=== PATIENT | female | born 1980 | race Caucasian/White ===

== ENCOUNTER 2020-10-25 11:40 | Emergency (ER) | payer OTHER, SELFPAY ==
[2020-10-25 11:51] VITALS: BP 108/61; BP 98/63; PULSE 64; RESP 16; TEMP 35.8; O2SAT 97; O2SAT 98; BMI 27.6
--- NOTE | 2020-10-25 12:00 | ED.GENADULT ---
HPI - General Adult General Chief complaint: General Medical Stated complaint: WITHDRAWAL FROM HEROIN, LAST USE T-1 Time Seen by Provider: 10/25/20 11:58 Source: EMS Mode of arrival: EMS Limitations: no limitations History of Present Illness HPI narrative: 40-year-old female with a past medical history of substance abuse currently on methadone here after found asleep in her car. Per patient she was waiting in her car outside a shoe store for her shoes to be ready when she fell asleep. She denies current heroin use and is on methadone although missed her dose this morning.. Denies additional substance use. No physical complaints. She does tell me she received the J and J COVID vaccine 3 days ago and since then she has been feeling fatigued and tired and believes this is why she fell asleep. On arrival alert and oriented. Here with partner who was also in the car and found sleeping by PD. Related Data Allergies Allergy/AdvReac Type Severity Reaction Status Date / Time amoxicillin [Augmentin] Allergy Unknown hives Verified 10/04/16 00:00 clavulanic acid [Augmentin] Allergy Unknown hives Verified 10/04/16 00:00 Review of Systems Review of Systems: Yes all other systems are reviewed and are negative Constitutional: Constitutional: Reports no additional constitutional complaints, Denies body ache(s), Denies chills, Reports fatigue, Denies fever(s), Denies headache(s) and Denies weakness Eyes: Eyes: Reports no additional eye complaints and Denies change in vision ENT: Reports system reviewed and no additional complaints, except as documented, Denies dizziness, Denies headache(s), Denies nasal congestion, Denies nasal discharge and Denies neck pain Cardiovascular: Cardiovascular: Reports no additional cardiovascular complaints, Denies chest pain, Denies leg edema and Denies dyspnea Respiratory: Respiratory: Reports no additional respiratory complaints, Denies cough and Denies dyspnea Gastrointestinal: Gastrointestinal: Reports no additional gastrointestinal complaints, Denies abdominal pain, Denies diarrhea, Denies nausea and Denies vomiting Genitourinary: Genitourinary: Reports no additional female genitourinary complaints and Denies urinary incontinence Musculoskeletal: Musculoskeletal: Reports no additional musculoskeletal complaints, Denies back pain, Denies arthralgias, Denies joint swelling, Denies neck pain, Denies numbness and Denies tingling Integumentary/Breasts: Skin/Breast: Reports system reviewed and no additional complaints, except as docu and Denies rash Neurologic: Reports system reviewed and no additional complaints, except as documented, Denies Abnormal speech present, Denies dizziness, Denies headache(s), Denies numbness, Denies tingling and Denies weakness Endocrine: Endocrine: Reports fatigue PMFSH Past Medical History Attestation statement: The following information was validated with the patient. Source: old records reviewed and nursing notes reviewed Medical History Anxiety Depression Substance abuse Social History Social History Advance Directives: No Advance Directives Information Provided: Yes Patient : No Physical Exam Vital Signs: Vital Signs: Last Vital Signs Temp 96.5 F L 10/25/20 11:51 Pulse 64 10/25/20 11:51 Resp 16 10/25/20 11:51 BP 98/63 10/25/20 11:51 Pulse Ox 97 10/25/20 11:51 Body Mass Index 27.6 Const: General: cooperative, healthy appearing, comfortable and no acute distress Orientation/consciousness: patient oriented x3 Limitations: no limitations HENMT: Head: Yes normal to inspection Ears: hearing grossly normal bilaterally General nose exam: Normal external nose present Face and sinus: Yes normal facial exam Mouth: Normal oral and palatal mucosa present Throat: Yes posterior oropharynx normal Eyes: General: appearance normal, both eyes and all related structures Pupils: Equal, round and reactive pupils present Neck: Neck: Yes normal visual inspection Chest: Chest palpation & inspection: normal inspection of the chest Resp: Effort & Inspection: normal respiratory effort Auscultation: clear to auscultation bilaterally Cardio: Rate: regular rate Rhythm: regular rhythm Peripheral pulses: Peripheral pulses 2+ throughout GI: Inspection: Yes normal to inspection Palpation (GI): Soft to palpation and nontender Auscultation: normal bowel sounds Back/Spine/Pelvis: Thoracic/Lumbar Spine: thoracic and lumbar spine normal to inspection Skin: General skin exam: no rashes or lesions noted Neuro: General: patient oriented x3, no focal motor deficits and normal sensation to monofilament Cranial nerves: Yes Equal, round and reactive pupils present Cognition (Neuro): normal cognition Speech: No Abnormal speech present Gait exam (Neuro): Normal gait present Motor exam (neuro): 5/5 motor strength present throughout Extrem: General: Yes normal to inspection Course Course Course Narrative: 40 yo female here after found sleeping in her car with her partner. Now A&Ox4. HD stable. Walks with steady gait with no complaints with exception of fatigue after receiving the J&J vaccine several days ago. Medical Decision Making MDM Narrative Medical decision making narrative: Non-toxic. No trauma. Ambulatory with stable vital signs seeking discharge. Discharge Plan Discharge Clinical Impression: Encounter for medical screening examination Patient Disposition: Home, Self-Care Instructions: Normal Exam (ED) Interventions: ED Discharge Assessment Last Done: 10/25/20 12:06 Discharge Date/Time: 10/25/20 12:07
== END 2020-10-25 12:07 | disposition home or self-care (01) ==
LOC: HO.ED 12:02
PROVIDERS: Emergency Provider Emergency Medicine; PCP Internal Medicine
DX: R53.83 Other fatigue (principal); Z03.6 Encounter for observation for suspected toxic effect from ingested substance ruled out
CPT/HCPCS: 99282; 99283

== ENCOUNTER 2021-02-18 19:15 | Inpatient (IN) | payer OTHER, SELFPAY ==
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
[2021-02-19] MEDS: buPROPion HCl XL 300 MG TAB.ER.24H PO (09:55)
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
--- NOTE | 2021-02-19 15:38 | PC.NURSE ---
Pt declined offer for nicotine patch.
[2021-02-19] MEDS: ALPRAZolam 0.5 MG TABLET 1 MG PO (19:35)
[2021-02-19] MEDS: methADONE HCl 20 MG/2 ML ORAL.CONC 120 MG PO (19:52)
[2021-02-20 03:41] VITALS: BP 118/75; PULSE 81
[2021-02-20] MEDS: Prazosin HCL 1 MG CAPSULE 2 MG PO ×2 (03:41→20:20)
[2021-02-20] MEDS: hydrOXYzine HCL 25 MG TABLET PO (03:42)
[2021-02-20 06:00] VITALS: TEMP 36.1
[2021-02-20] MEDS: methADONE HCl 20 MG/2 ML ORAL.CONC 120 MG PO (10:10)
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
--- NOTE | 2021-02-20 13:26 | P.CNHOSGPS_ITS ---
History of Present Illness Data of Consult Service Date: 02/20/21 Requesting [place]: [facility] Primary Care Provider: Nonstaff Physician HPI Reason for consult: medical H+P 40 yo female with a past history of depression and anxiety, substance abuse currently on methadone admitted to for disorganized speech and behavior.? Medical H+P requested. Pt denies chronic medical problems except the psychiatric disorders noted above. No fever, chills, cough, chest pain, nausea, vomiting, or abdominal pain. She is fully vaccinated against COVID-19. Review of Systems Review of Systems: Yes all other systems are reviewed and are negative [facility] Medical History Anxiety Cannabis abuse Depression Opioid dependence Substance abuse Pertinent family history: no DM Surgical History History of hernia repair Social History Household Members: Unknown / Unable to assess Do you presently have visiting nurse or other home services: No Unable to assess alcohol history related to: Unknown Patient Tobacco Use Status: Current everyday Tobacco user Tobacco use type: Cigarette Patient Interested in Nicotine Replacement: Yes Patient Given Instructions on How to Stop Smoking: Yes Date Education Initiated: 02/18/21 Second Hand Smoke Exposure: No Use of substances other than those prescribed or required for medical reasons: Yes Substance Use Type: Marijuana and Opiates Last Used Substance: Unknown Currently Displaying Signs/Symptoms of Drug Intoxication Withdrawal: No Have you been hit, kicked, punched, or otherwise hurt by someone within the past year? If so, by whom?: No Do you feel safe in your current relationship?: Yes Is there a partner from a previous relationship who is making you feel unsafe now?: No Are you made to feel afraid or neglected: No Advance Directives: No Advance Directives Information Provided: No Advance Directives on File: No Do you have thoughts of harming others: None Do you have a plan to hurt others: No Plan Recently lost weight without trying: No Nutrition Risks: No Nutritional Risk Patient : No : No Poor oral hygiene: No service: No Sexual orientation: Straight/Heterosexual Meds Allergies Allergy/AdvReac Type Severity Reaction Status Date / Time amoxicillin [Augmentin] Allergy Unknown hives Verified 10/04/16 00:00 clavulanic acid [Augmentin] Allergy Unknown hives Verified 10/04/16 00:00 Active Medications: Current Medications Acetaminophen (Acetaminophen 325 Mg Tablet) 650 mg PO Q6H PRN PRN Reason: Headache/Pain Mild Scale (1-3) Al Hydroxide/Mg Hydroxide (Magnesium Hydrox/Alum Hydrox 30 Ml Oral.Susp) 30 ml PO Q6H PRN PRN Reason: Heartburn/Nausea Alprazolam (Alprazolam 0.5 Mg Tablet) 1 mg PO TID PRN PRN Reason: Anxiety Last Admin: 02/19/21 19:35 Dose: 1 mg Documented by: Bupropion HCl (Bupropion Hcl Xl 300 Mg Tab.Er.24h) 300 mg PO DAILY [facility] Last Admin: 02/20/21 08:45 Dose: Not Given Documented by: Hydroxyzine HCl (Hydroxyzine Hcl 25 Mg Tablet) 25 mg PO BEDTIME PRN PRN Reason: Anxiety Last Admin: 02/20/21 03:42 Dose: 25 mg Documented by: Hydroxyzine HCl (Hydroxyzine Hcl 50 Mg Tablet) 50 mg PO BEDTIME [facility] Last Admin: 02/19/21 22:17 Dose: Not Given Documented by: Magnesium Hydroxide (Milk Of Magnesia 30 Ml Oral.Susp) 30 ml PO DAILY PRN PRN Reason: Constipation Methadone HCl (Methadone Hcl 20 Mg/2 Ml Oral.Conc) 120 mg PO DAILY [facility] Last Admin: 02/20/21 10:10 Dose: 120 mg Documented by: Prazosin HCl (Prazosin Hcl 1 Mg Capsule) 2 mg PO BEDTIME [facility]; Protocol Last Admin: 02/20/21 03:41 Dose: 2 mg Documented by: Trazodone HCl (Trazodone Hcl 50 Mg Tablet) 50 mg PO BEDTIME PRN PRN Reason: Insomnia Home Medications Medication Instructions Recorded Confirmed Last Taken Type alprazolam 1 mg tablet 1 tab PO TID PRN 02/18/21 02/18/21 Unknown History bupropion HCl 200 mg tablet,12 hr 1 tab PO BID 02/18/21 02/18/21 Unknown History sustained-release hydroxyzine HCl 50 mg tablet 1 tab PO BEDTIME 02/18/21 02/18/21 Unknown History prazosin 2 mg capsule 2 cap PO BEDTIME 02/18/21 02/18/21 Unknown History methadone 10 mg/mL oral 150 mg PO DAILY 02/19/21 02/19/21 02/16/21 History concentrate (Methadone Intensol) Assessment and Plan (1) Evaluation by medical service required: Status: Acute (2) Opioid dependence: Status: Acute 40 yo female with a past history of depression and anxiety, substance abuse disorder currently on methadone admitted to for psychosis. Medical H+P requested. No other chronic medical conditions. Continue bupropion, prazosin, hydroxyzine, and methadone. Recommend EKG for QTc monitoring given dose of methadone plus hydroxyzine. Thank you for this consultation. We are signing off. Please call if there if any new medical issues arise. Physical Exam Vital Signs: Last Vital Signs Temp 97.0 F 02/20/21 06:00 Pulse 81 02/20/21 03:41 BP 118/75 02/20/21 03:41 Gen: in no acute distress HEENT: sclera anicteric, moist mucus membranes Neck: supple Lungs: clear to auscultation bilaterally Heart: regular rate and rhythm, no murmurs Abd: soft, non-tender, non-distended Ext: no edema Skin: warm/well-perfused Neuro: alert and oriented x3, no focal findings Psych: appropriate affect Neuro Cranial nerves: Yes CN's II-XII intact bilaterally
[2021-02-20] MEDS: ALPRAZolam 0.5 MG TABLET 1 MG PO (13:31)
--- NOTE | 2021-02-20 14:39 | PC.NURSE ---
pt signed a 3 day notice on 02/20 that will be up on 02/25.
[2021-02-20] MEDS: risperiDONE 0.5 MG TABLET PO ×2 (16:40→20:20)
[2021-02-20 18:00] VITALS: BP 133/80; PULSE 74; RESP 18; TEMP 36.6; O2SAT 100
[2021-02-20 20:20] VITALS: BP 153/94; PULSE 108
[2021-02-20] MEDS: hydrOXYzine HCL 50 MG TABLET PO (20:21)
[2021-02-21] MEDS: clonazePAM 0.5 MG TABLET 0.25 MG PO ×3 (05:00→20:20)
--- NOTE | 2021-02-21 10:13 | HO.PSYCHPN ---
Subjective Subjective Date of Service: 02/21/21 Reason For Visit: SI Interim History: met with patient and Saeed, her partner. Saeed agrees that pt is still not at baseline and seems disorganized, paranoid. She agrees she's not at her baseline but says she misses Saeed. She agrees to remain on unit longer and to keep taking risperdal and at higher dose. Discussed methadone and she says she wants it to stay at 140mg Mental Status Exam Mental Status Exam Narrative: Pt is alert and oriented; behavior anxious, clinging to boyfriend; causal cloths, adequate hygine; mood is anxious and affect congruent; eye contact appropriate; Speech is normal rate, volume, prosody; thought process is goal directed;. Thought content is discharge, treatment; some delusional content, paranoid ideations or grandiosity; denies any SI/HI;?Patients insight and judgment are impaired. Diagnostics Vital Signs (24Hr): Vital Signs - 24 hr 02/20/21 18:00 02/20/21 20:20 Temperature 97.9 F Pulse Rate 74 108 H Respiratory Rate 18 Blood Pressure 133/80 153/94 H Pulse Oximetry 100 Medications Medications Current Medications Acetaminophen (Acetaminophen 325 Mg Tablet) 650 mg PO Q6H PRN PRN Reason: Headache/Pain Mild Scale (1-3) Al Hydroxide/Mg Hydroxide (Magnesium Hydrox/Alum Hydrox 30 Ml Oral.Susp) 30 ml PO Q6H PRN PRN Reason: Heartburn/Nausea Bupropion HCl (Bupropion Hcl Xl 300 Mg Tab.Er.24h) 300 mg PO DAILY [facility] Last Admin: 02/20/21 08:45 Dose: Not Given Documented by: Clonazepam (Clonazepam 0.5 Mg Tablet) 0.25 mg PO TID PRN PRN Reason: moderate anxiety Last Admin: 02/21/21 05:00 Dose: 0.25 mg Documented by: Hydroxyzine HCl (Hydroxyzine Hcl 50 Mg Tablet) 50 mg PO BEDTIME [facility] Last Admin: 02/20/21 20:21 Dose: 50 mg Documented by: Magnesium Hydroxide (Milk Of Magnesia 30 Ml Oral.Susp) 30 ml PO DAILY PRN PRN Reason: Constipation Methadone HCl (Methadone Hcl 20 Mg/2 Ml Oral.Conc) 140 mg PO DAILY [facility] Prazosin HCl (Prazosin Hcl 1 Mg Capsule) 2 mg PO BEDTIME [facility]; Protocol Last Admin: 02/20/21 20:20 Dose: 2 mg Documented by: Risperidone (Risperidone 0.5 Mg Tablet) 0.5 mg PO BID [facility] Last Admin: 02/20/21 20:20 Dose: 0.5 mg Documented by: Trazodone HCl (Trazodone Hcl 50 Mg Tablet) 50 mg PO BEDTIME PRN PRN Reason: Insomnia Allergies Allergies Allergy/AdvReac Type Severity Reaction Status Date / Time amoxicillin [Augmentin] Allergy Unknown hives Verified 10/04/16 00:00 clavulanic acid [Augmentin] Allergy Unknown hives Verified 10/04/16 00:00 Assessment & Plan Assessment & Plan (1) Brief psychotic disorder: Status: Acute Code(s): F23 - Brief psychotic disorder (2) Depression: Status: Chronic Code(s): F32.9 - Major depressive disorder, single episode, unspecified (3) Anxiety: Status: Chronic Code(s): F41.9 - Anxiety disorder, unspecified (4) Cannabis abuse: Status: Acute Code(s): F12.10 - Cannabis abuse, uncomplicated (5) Opioid dependence: Status: Acute Code(s): F11.20 - Opioid dependence, uncomplicated Assessment and Plan: IMPRESSION: Pt is a 40 yo female with a past history of depression and anxiety, substance abuse currently on methadone who presents for disorganized speech and behavior for the past 7 days in the face of either marked stressor of grandmother's recent, severe illness or substance induced symptoms due to relapse. -Patient is currently a poor historian and did not want to engage with quality analyst/technical writer. -Boyfriend provided collateral and says she he has not acted like this before and reports disorganized behavior and speech. He says she has been stressed lately including dealing with recently grandmother and other family members. -will continue home medications for now -for now will diagnose patient with brief psychotic disorder with marked stressor of reason grandmother's , as she has reportedly been paranoid delusions, hallucinations and disorganized speech behavior for about 1 week. -ordered UDS as substance induced psychotic disorder remains a rule out Patient agreed to try Risperdal (quality analyst/technical writer reviewed risks/side effects and patient consented to trial) She asked for Xanax to be changed to clonazepam since clonazepam lasts longer; it is quality analyst/technical writer's opinion that neither are very helpful for her if she takes them regularly and not just for panic, however patient is disorganized and anxious and she might do better if she could get some of this anxiety under more control. -patient remains with disorganized speech and behavior; her mother called expressing concern. Patient will remain on unit for further observation and gathering collateral to assess patient's safety. PLAN: Three day notice Q 15 minutes checks Increased to Risperdal 1 mg b.i.d.; patient is naive to antipsychotic medication and so will start low for now Continue home medications for now Ordered urine tox screen Reviewed labs from [facility]. CBC, lytes, BUN/creatinine, LFTs, TSH all within normal limits; no UDS; negative test Greater than 50% of the session was spent on counseling and/or coordination of care Reason for contiued inpatient stay Substantial Risk for: rapid decompensation
[2021-02-21] MEDS: buPROPion HCl XL 300 MG TAB.ER.24H PO (10:24)
[2021-02-21] MEDS: risperiDONE 0.5 MG TABLET PO (10:24)
[2021-02-21] MEDS: methADONE HCl 20 MG/2 ML ORAL.CONC 140 MG PO (10:24)
[2021-02-21 20:19] VITALS: BP 176/86; PULSE 111
[2021-02-21] MEDS: Prazosin HCL 1 MG CAPSULE 2 MG PO (20:19)
[2021-02-21] MEDS: risperiDONE 1 MG TABLET PO (20:20)
[2021-02-21] MEDS: hydrOXYzine HCL 50 MG TABLET PO (20:20)
[2021-02-22] MEDS: clonazePAM 0.5 MG TABLET 0.25 MG PO ×2 (08:34→17:11)
[2021-02-22] MEDS: methADONE HCl 20 MG/2 ML ORAL.CONC 140 MG PO (08:35)
[2021-02-22] MEDS: buPROPion HCl XL 300 MG TAB.ER.24H PO (09:51)
--- NOTE | 2021-02-22 13:35 | HO.PSYCHPN ---
Subjective Subjective Date of Service: 02/22/21 Reason For Visit: SI Interim History: Patient lying in bed with covers pulled up to her head. She talked with insurance underwriter, but was vague and guarded. Patient denies any SI. When asked if she has auditory hallucinations she said ?I know I am sick.? On further inquiry patient said she only hears voices of her family which are encouraging voices. Patient had reported to nurse that Risperdal causes some tingling in her jaw so this was discontinued and patient agreed to trial of Abilify. Patient says she wants to go home still but agrees to further discuss with her fistevie Mir. Mental Status Exam Mental Status Exam Narrative: :?Pt is alert and oriented; behavior anxious, guarded; causal cloths, adequate hygiene; mood is anxious and affect congruent; eye contact little avoidant; Speech is soft and sparse, but normal rate, prosody; thought process is goal directed but concrete;. Thought content is on being sick and on discharge, missing her fiance; some delusional content, paranoid ideations; denies any SI/HI;?Patients insight and judgment are impaired. Diagnostics Vital Signs (24Hr): Vital Signs - 24 hr 02/21/21 20:19 Pulse Rate 111 H Blood Pressure 176/86 H Medications Medications Current Medications Acetaminophen (Acetaminophen 325 Mg Tablet) 650 mg PO Q6H PRN PRN Reason: Headache/Pain Mild Scale (1-3) Al Hydroxide/Mg Hydroxide (Magnesium Hydrox/Alum Hydrox 30 Ml Oral.Susp) 30 ml PO Q6H PRN PRN Reason: Heartburn/Nausea Aripiprazole (Aripiprazole 5 Mg Tablet) 5 mg PO DAILY [facility] Aripiprazole (Aripiprazole 5 Mg Tablet) 5 mg PO ONCE ONE Stop: 02/22/21 13:36 Bupropion HCl (Bupropion Hcl Xl 300 Mg Tab.Er.24h) 300 mg PO DAILY [facility] Last Admin: 02/22/21 09:51 Dose: 300 mg Documented by: Clonazepam (Clonazepam 0.5 Mg Tablet) 0.25 mg PO TID PRN PRN Reason: moderate anxiety Last Admin: 02/22/21 08:34 Dose: 0.25 mg Documented by: Hydroxyzine HCl (Hydroxyzine Hcl 50 Mg Tablet) 50 mg PO BEDTIME [facility] Last Admin: 02/21/21 20:20 Dose: 50 mg Documented by: Magnesium Hydroxide (Milk Of Magnesia 30 Ml Oral.Susp) 30 ml PO DAILY PRN PRN Reason: Constipation Methadone HCl (Methadone Hcl 20 Mg/2 Ml Oral.Conc) 140 mg PO DAILY [facility] Last Admin: 02/22/21 08:35 Dose: 140 mg Documented by: Prazosin HCl (Prazosin Hcl 1 Mg Capsule) 2 mg PO BEDTIME [facility]; Protocol Last Admin: 02/21/21 20:19 Dose: 2 mg Documented by: Trazodone HCl (Trazodone Hcl 50 Mg Tablet) 50 mg PO BEDTIME PRN PRN Reason: Insomnia Allergies Allergies Allergy/AdvReac Type Severity Reaction Status Date / Time amoxicillin [Augmentin] Allergy Unknown hives Verified 10/04/16 00:00 clavulanic acid [Augmentin] Allergy Unknown hives Verified 10/04/16 00:00 Assessment & Plan Assessment & Plan (1) Brief psychotic disorder: Status: Acute Code(s): F23 - Brief psychotic disorder (2) Depression: Status: Chronic Code(s): F32.9 - Major depressive disorder, single episode, unspecified (3) Anxiety: Status: Chronic Code(s): F41.9 - Anxiety disorder, unspecified (4) Cannabis abuse: Status: Acute Code(s): F12.10 - Cannabis abuse, uncomplicated (5) Opioid dependence: Status: Acute Code(s): F11.20 - Opioid dependence, uncomplicated Assessment and Plan: IMPRESSION: Pt is a 40 yo female with a past history of depression and anxiety, substance abuse currently on methadone who presents for disorganized speech and behavior for the past 7 days in the face of either marked stressor of grandmother's recent, severe illness or substance induced symptoms due to relapse. 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 It is possible that stress and memories of past trauma have caused some sort of a PTSD/dissociative episode, but patient is guarded and it is difficult to tell. -Patient is currently a poor historian and did not want to engage with insurance underwriter. -Boyfriend provided collateral and says she he has not acted like this before and reports disorganized behavior and speech. He says she has been stressed lately including dealing with recently grandmother and other family members. -will continue home medications for now -for now will diagnose patient with brief psychotic disorder with marked stressor of reason grandmother's , as she has reportedly been paranoid delusions, hallucinations and disorganized speech behavior for about 1 week. -ordered UDS as substance induced psychotic disorder remains a rule out Patient agreed to try Risperdal (insurance underwriter reviewed risks/side effects and patient consented to trial) She asked for Xanax to be changed to clonazepam since clonazepam lasts longer; it is insurance underwriter's opinion that neither are very helpful for her if she takes them regularly and not just for panic, however patient is disorganized and anxious and she might do better if she could get some of this anxiety under more control. -patient remains with disorganized speech and behavior; her mother called expressing concern. Patient will remain on unit for further observation and gathering collateral to assess patient's safety. PLAN: Three day notice Q 15 minutes checks START Abilify 5 mg daily DISCONTINUE Risperdal due to possible mild dystonia Continue home medications for now Ordered urine tox screen Reviewed labs from [facility]. CBC, lytes, BUN/creatinine, LFTs, TSH all within normal limits; no UDS; negative test Greater than 50% of the session was spent on counseling and/or coordination of care Reason for contiued inpatient stay Substantial Risk for: med/psych decompensation
[2021-02-22] MEDS: ARIPiprazole 5 MG TABLET PO (13:39)
[2021-02-22 20:15] VITALS: BP 151/83; PULSE 99; TEMP 36.4
[2021-02-22] MEDS: hydrOXYzine HCL 50 MG TABLET PO (20:21)
[2021-02-22 20:22] VITALS: BP 151/83; PULSE 99
[2021-02-22] MEDS: Prazosin HCL 1 MG CAPSULE 2 MG PO (20:22)
[2021-02-23] MEDS: clonazePAM 0.5 MG TABLET 0.25 MG PO ×4 (00:06→20:15)
[2021-02-23] MEDS: ARIPiprazole 5 MG TABLET PO (08:34)
[2021-02-23] MEDS: methADONE HCl 20 MG/2 ML ORAL.CONC 140 MG PO (08:34)
[2021-02-23] MEDS: buPROPion HCl XL 300 MG TAB.ER.24H PO (08:34)
--- NOTE | 2021-02-23 16:48 | P.PNPSI_ITS ---
Subjective Subjective Date of Service: 02/23/21 Reason For Visit: SI Interim History: Patient reports that she is feeling much better. She denies any SI or HI and says only intermittently does she hear the voices of her family talking to her which is welcomed. Patient says she feels back to her old self, not depressed and other than missing her fiance, feels overall okay. She feels that Abilify is helpful, it helps her to feel me again and she plans to continue taking it. Mental Status Exam Mental Status Exam Narrative: Pt is alert and oriented; behavior cooperative; causal cloths, adequate hygiene; mood is better.. feeling herself again and affect congruent; eye contact adequate, appropriate;? Speech is but normal rate, volume and prosody; thought process is goal directed; remains concrete;. Thought content is on being feeling better, back to normal self and ready for discharge, missing her fiance; no overt delusional content, no paranoid ideations; intermittent AH but less so and only of her beloved, family members saying encouraging things; she denies any SI/HI;?Patients insight and judgment appear intact. Diagnostics Vital Signs (24Hr): Vital Signs - 24 hr 02/22/21 20:15 02/22/21 20:22 Temperature 97.5 F Pulse Rate 99 99 Blood Pressure 151/83 H 151/83 H Medications Medications Current Medications Acetaminophen (Acetaminophen 325 Mg Tablet) 650 mg PO Q6H PRN PRN Reason: Headache/Pain Mild Scale (1-3) Al Hydroxide/Mg Hydroxide (Magnesium Hydrox/Alum Hydrox 30 Ml Oral.Susp) 30 ml PO Q6H PRN PRN Reason: Heartburn/Nausea Aripiprazole (Aripiprazole 5 Mg Tablet) 5 mg PO DAILY [facility] Last Admin: 02/23/21 08:34 Dose: 5 mg Documented by: Bupropion HCl (Bupropion Hcl Xl 300 Mg Tab.Er.24h) 300 mg PO DAILY [facility] Last Admin: 02/23/21 08:34 Dose: 300 mg Documented by: Clonazepam (Clonazepam 0.5 Mg Tablet) 0.25 mg PO TID PRN PRN Reason: moderate anxiety Last Admin: 02/23/21 14:50 Dose: 0.25 mg Documented by: Hydroxyzine HCl (Hydroxyzine Hcl 50 Mg Tablet) 50 mg PO BEDTIME [facility] Last Admin: 02/22/21 20:21 Dose: 50 mg Documented by: Magnesium Hydroxide (Milk Of Magnesia 30 Ml Oral.Susp) 30 ml PO DAILY PRN PRN Reason: Constipation Methadone HCl (Methadone Hcl 20 Mg/2 Ml Oral.Conc) 140 mg PO DAILY [facility] Last Admin: 02/23/21 08:34 Dose: 140 mg Documented by: Prazosin HCl (Prazosin Hcl 1 Mg Capsule) 2 mg PO BEDTIME [facility]; Protocol Last Admin: 02/22/21 20:22 Dose: 2 mg Documented by: Trazodone HCl (Trazodone Hcl 50 Mg Tablet) 50 mg PO BEDTIME PRN PRN Reason: Insomnia Allergies Allergies Allergy/AdvReac Type Severity Reaction Status Date / Time amoxicillin [Augmentin] Allergy Unknown hives Verified 10/04/16 00:00 clavulanic acid [Augmentin] Allergy Unknown hives Verified 10/04/16 00:00 Assessment & Plan Assessment & Plan (1) Brief psychotic disorder: Status: Acute Code(s): F23 - Brief psychotic disorder (2) Depression: Status: Chronic Code(s): F32.9 - Major depressive disorder, single episode, unspecified (3) Anxiety: Status: Chronic Code(s): F41.9 - Anxiety disorder, unspecified (4) Cannabis abuse: Status: Acute Code(s): F12.10 - Cannabis abuse, uncomplicated (5) Opioid dependence: Status: Acute Code(s): F11.20 - Opioid dependence, uncomplicated Assessment and Plan: IMPRESSION: Pt is a 40 yo female with a past history of depression and anxiety, substance abuse currently on methadone who presents for disorganized speech and behavior for the past 7 days in the face of either marked stressor of grandmother's recent, severe illness or substance induced symptoms due to relapse. 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 It is possible that stress and memories of past trauma have caused some sort of a PTSD/dissociative episode, but patient is guarded and it is difficult to tell. -Patient is currently a poor historian and did not want to engage with field underwriter. -Boyfriend provided collateral and says she he has not acted like this before and reports disorganized behavior and speech. He says she has been stressed lately including dealing with recently grandmother and other family members. -will continue home medications for now -for now will diagnose patient with brief psychotic disorder with marked st ressor of reason grandmother's , as she has reportedly been paranoid delusions, hallucinations and disorganized speech behavior for about 1 week. -ordered UDS as substance induced psychotic disorder remains a rule out Patient agreed to try Risperdal (field underwriter reviewed risks/side effects and patient consented to trial) She asked for Xanax to be changed to clonazepam since clonazepam lasts longer; it is field underwriter's opinion that neither are very helpful for her if she takes them regularly and not just for panic, however patient is disorganized and anxious and she might do better if she could get some of this anxiety under more control. -patient remains with disorganized speech and behavior; her mother called expressing concern. Patient will remain on unit for further observation and gathering collateral to assess patient's safety. 02/23 patient reports she is feeling much better. She is noticeably with brighter affect, and seems much less anxious; behavior is cooperative and no longer guarded. Patient denies any SI or HI. She still has intermittent auditory hallucinations but it is just of her beloved family members whom she says saying courage in things and the experience of which is welcomed. Patient says she is feeling back to her normal self and would like to discuss discharge. However,she agrees that she wants her fiance Clarke to also give input. Patient says she feels the Abilify is working well and is well tolerated. . PLAN: Three day notice Q 15 minutes checks Continue Abilify 5 mg daily DISCONTINUE Risperdal due to possible mild dystonia Continue home medications for now Ordered urine tox screen Reviewed labs from [facility]. CBC, lytes, BUN/creatinine, LFTs, TSH all within normal limits; no UDS; negative test Greater than 50% of the session was spent on counseling and/or coordination of care Reason for contiued inpatient stay Substantial Risk for: other (likely near or at baseline)
[2021-02-23] MEDS: Acetaminophen 325 MG TABLET 650 MG PO (18:18)
[2021-02-23 20:12] VITALS: BP 134/70; PULSE 79
[2021-02-23] MEDS: Prazosin HCL 1 MG CAPSULE 2 MG PO (20:12)
[2021-02-23] MEDS: hydrOXYzine HCL 50 MG TABLET PO (20:13)
[2021-02-23 20:15] VITALS: BP 134/70; PULSE 79; TEMP 36.3; O2SAT 98
[2021-02-24] MEDS: clonazePAM 0.5 MG TABLET 0.25 MG PO ×3 (01:06→20:55)
[2021-02-24 06:00] VITALS: BP 105/63; PULSE 108; RESP 16; TEMP 36.6; O2SAT 97
[2021-02-24] MEDS: methADONE HCl 20 MG/2 ML ORAL.CONC 140 MG PO (08:27)
[2021-02-24] MEDS: buPROPion HCl XL 300 MG TAB.ER.24H PO (08:29)
[2021-02-24] MEDS: ARIPiprazole 5 MG TABLET PO (08:29)
--- NOTE | 2021-02-24 09:49 | HO.PSYCHPN ---
Subjective Subjective Date of Service: 02/24/21 Reason For Visit: SI Interim History: Met with patient who continues to report that her mood is better, and of note pt's affect is noticeably brighter. No SI or HI at all. She volunteered that she is really liking the Abilify and that it seems to help and she notices that she no longer wants to stay in her room by herself and just sleep but is coming out to socialize in the milieu. Patient feels good about discharging tomorrow. She did endorse poor sleep last night which he said was due to crazy dreams however these are not nightmares. She will consider taking the trazodone to see if it helps. Mental Status Exam Mental Status Exam Narrative: ?Pt is alert and oriented; behavior cooperative; causal cloths, adequate hygiene; mood is good.. feeling herself again and affect congruent, noticeably brighter; eye contact adequate, appropriate;? Speech is but normal rate, volume and prosody; thought process is goal directed; remains concrete;. Thought content is on being feeling better, back to normal self and ready for discharge, missing her fiance; no overt delusional content, no paranoid ideations; intermittent AH but less so and only of her beloved, family members saying encouraging things; she denies any SI/HI;?Patients insight and judgment appear intact. Diagnostics Vital Signs (24Hr): Vital Signs - 24 hr 02/23/21 20:12 02/23/21 20:15 02/24/21 06:00 Temperature 97.4 F 98 F Pulse Rate 79 79 108 H Respiratory Rate 16 Blood Pressure 134/70 134/70 105/63 Pulse Oximetry 98 97 Medications Medications Current Medications Acetaminophen (Acetaminophen 325 Mg Tablet) 650 mg PO Q6H PRN PRN Reason: Headache/Pain Mild Scale (1-3) Last Admin: 02/23/21 18:18 Dose: 650 mg Documented by: Al Hydroxide/Mg Hydroxide (Magnesium Hydrox/Alum Hydrox 30 Ml Oral.Susp) 30 ml PO Q6H PRN PRN Reason: Heartburn/Nausea Aripiprazole (Aripiprazole 5 Mg Tablet) 5 mg PO DAILY [facility] Last Admin: 02/24/21 08:29 Dose: 5 mg Documented by: Bupropion HCl (Bupropion Hcl Xl 300 Mg Tab.Er.24h) 300 mg PO DAILY [facility] Last Admin: 02/24/21 08:29 Dose: 300 mg Documented by: Clonazepam (Clonazepam 0.5 Mg Tablet) 0.25 mg PO TID PRN PRN Reason: moderate anxiety Last Admin: 02/24/21 01:06 Dose: 0.25 mg Documented by: Hydroxyzine HCl (Hydroxyzine Hcl 50 Mg Tablet) 50 mg PO BEDTIME [facility]IP[facility] Last Admin: 02/23/21 20:13 Dose: 50 mg Documented by: Magnesium Hydroxide (Milk Of Magnesia 30 Ml Oral.Susp) 30 ml PO DAILY PRN PRN Reason: Constipation Methadone HCl (Methadone Hcl 20 Mg/2 Ml Oral.Conc) 140 mg PO DAILY [facility] Last Admin: 02/24/21 08:27 Dose: 140 mg Documented by: Prazosin HCl (Prazosin Hcl 1 Mg Capsule) 2 mg PO BEDTIME [facility]; Protocol Last Admin: 02/23/21 20:12 Dose: 2 mg Documented by: Trazodone HCl (Trazodone Hcl 50 Mg Tablet) 50 mg PO BEDTIME PRN PRN Reason: Insomnia Allergies Allergies Allergy/AdvReac Type Severity Reaction Status Date / Time amoxicillin [Augmentin] Allergy Unknown hives Verified 10/04/16 00:00 clavulanic acid [Augmentin] Allergy Unknown hives Verified 10/04/16 00:00 Assessment & Plan Assessment & Plan (1) Brief psychotic disorder: Status: Acute Code(s): F23 - Brief psychotic disorder (2) Depression: Status: Chronic Code(s): F32.9 - Major depressive disorder, single episode, unspecified (3) Anxiety: Status: Chronic Code(s): F41.9 - Anxiety disorder, unspecified (4) Cannabis abuse: Status: Acute Code(s): F12.10 - Cannabis abuse, uncomplicated (5) Opioid dependence: Status: Acute Code(s): F11.20 - Opioid dependence, uncomplicated Assessment and Plan: IMPRESSION: Pt is a 40 yo female with a past history of depression and anxiety, substance abuse currently on methadone who presents for disorganized speech and behavior for the past 7 days in the face of either marked stressor of grandmother's recent, severe illness or substance induced symptoms due to relapse. 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 It is possible that stress and memories of past trauma have caused some sort of a PTSD/dissociative episode, but patient is guarded and it is difficult to tell. -Patient is currently a poor historian and did not want to engage with abstract writer. -Boyfriend provided collateral and says she he has not acted like this before and reports disorganized behavior and speech. He says she has been stressed lately including dealing with recently grandmother and other family members. -will continue home medications for now -for now will diagnose patient with brief psychotic disorder with marked stressor of reason grandmother's , as she has reportedly been paranoid delusions, hallucinations and disorganized speech behavior for about 1 week. -ordered UDS as substance induced psychotic disorder remains a rule out Patient agreed to try Risperdal (abstract writer reviewed risks/side effects and patient consented to trial) She asked for Xanax to be changed to clonazepam since clonazepam lasts longer; it is abstract writer's opinion that neither are very helpful for her if she takes them regularly and not just for panic, however patient is disorganized and anxious and she might do better if she could get some of this anxiety under more control. -patient remains with disorganized speech and behavior; her mother called expressing concern. Patient will remain on unit for further observation and gathering collateral to assess patient's safety. 02/23 patient reports she is feeling much better. She is noticeably with brighter affect, and seems much less anxious; behavior is cooperative and no longer guarded. Patient denies any SI or HI. She still has intermittent auditory hallucinations but it is just of her beloved family members whom she says saying courage in things and the experience of which is welcomed. Patient says she is feeling back to her normal self and would like to discuss discharge. However,she agrees that she wants her fiance Clarke to also give input. Patient says she feels the Abilify is working well and is well tolerated. 02/24 patient remains in good mood with noticeably brighter affect; she feels Abilify remains helpful and wants continue with that; denies all SI or HI. She feels ready for discharge. Patient's 3 day notice is due on 02/25. She is not in imminent risk for harm to self or others and is appropriate for discharge. PLAN: Three day notice Q 15 minutes checks Continue Abilify 5 mg daily DISCONTINUE Risperdal due to possible mild dystonia Continue home medications for now Ordered urine tox screen Reviewed labs from [facility]. CBC, lytes, BUN/creatinine, LFTs, TSH all within normal limits; no UDS; negative test Greater than 50% of the session was spent on counseling and/or coordination of care Reason for contiued inpatient stay Substantial Risk for: stable for discharge
--- NOTE | 2021-02-24 16:51 | PM.PSYDC ---
DS: Providers Provider Date of Service: 02/25/21 Date of admission: 02/18/21 19:15 Date of discharge: 02/25/21 Primary care physician: Nonstaff Physician Attending physician on admission: Doron Conte Consults: 02/19/21 15:22 Consult to Hospitalist Routine Consulting Provider: Hospitalist Reason For Exam: admission physical Attending physician on discharge: Doron Conte DS: Diagnosis Discharge Diagnosis (1) Brief psychotic disorder: Status: Resolved (2) Depression: Status: Chronic (3) Anxiety: Status: Chronic (4) Cannabis abuse: Status: Chronic (5) Opioid dependence: Status: Chronic DS: Medications Discharge Medications Home Medications: Home Medications Medication Instructions Recorded Confirmed alprazolam 1 mg tablet 1 tab PO TID PRN 02/18/21 02/18/21 Previous Rx's Medication Instructions Recorded aripiprazole 5 mg tablet (Abilify) 5 mg PO DAILY 30 Days #30 tab 02/24/21 bupropion HCl 300 mg 24 hr tablet, 300 mg PO DAILY 30 Days #30 tab 02/24/21 extended release hydroxyzine HCl 50 mg tablet 50 mg PO BEDTIME PRN 30 Days #30 02/24/21 tab methadone 10 mg/mL oral 140 mg PO DAILY #0 ml 02/24/21 concentrate (Methadose) prazosin 2 mg capsule 4 mg PO BEDTIME 30 Days #60 cap 02/24/21 Mental Status Exam Mental Status Exam Narrative: Pt is alert and oriented; behavior cooperative; causal cloths, adequate hygiene; mood is good.. and affect congruent, noticeably brighter; eye contact adequate, appropriate;? Speech is but normal rate, volume and prosody; thought process is goal directed; remains concrete;. Thought content is on being feeling better, back to normal self and ready for discharge, missing her fiance; no overt delusional content, no paranoid ideations; no evidence of perceptual disturbance; she denies any SI/HI;?Patients insight and judgment appear intact. DS: Summary Hospital Course Hospital Course: Pt is a 40 yo female with a past history of depression and anxiety, substance abuse currently on methadone who presents for disorganized speech and behavior for the past 7 days in the face of either marked stressor of grandmother's recent, severe illness or substance induced symptoms due to relapse. It is difficult to conclude diagnosis and currently she is diagnosed with brief psychotic disorder.? It is possible that stress and memories of past trauma have caused some sort of a PTSD/dissociative episode, but patient is guarded and it is difficult to tell. -Patient at first was a poor historian and did not want to engage with automotive service writer. -Boyfriend provided collateral and says she he has not acted like this before and reports disorganized behavior and speech.? He says she has been stressed lately including dealing with recently grandmother and other family members. -Diagnose patient with brief psychotic disorder with marked stressor of reason grandmother's illness (not ), as she has reportedly had paranoid delusions, hallucinations and disorganized speech behavior for about 1 week. -Patient agreed to try Risperdal (automotive service writer reviewed risks/side effects and patient consented to trial) -She asked for Xanax to be changed to clonazepam since clonazepam lasts longer; it is automotive service writer's opinion that neither are very helpful for her if she takes them regularly and not just for panic, however patient is disorganized and anxious and she might do better if she could get some of this anxiety under more control. -patient reported mild dystonic reaction from Risperdal and was started on Abilify. Afterwards patient reported she started feeling much better and had a noticeably with brighter affect, was much less anxious; behavior is became cooperative and was no longer guarded. Throughout her admission she continued to deny any HI or SI and though isolative, had overall appropriate behaviors and impulse control.? She still had intermittent auditory hallucinations but they were less frequent and she reported they were only ever the voices of beloved family members who said only encouraging things and the experience of which is welcomed.? Patient continued to progress and she said she is feeling back to her normal self and would like to discuss discharge. She reported being in a good mood and denied depression and even pointed out that she no longer felt like staying in her room sleeping and had been out and about in the milieu socializing. She reported feeling Abilify was working well, was well tolerated and that she wanted to continue with this. She did have some trouble sleeping but found trazodone helpful and asked for this to be continued on discharge. She also agreed to go back to her Xanax and said she did not need any refills that she has adequate supply at home and can get more from her outpatient provider (her fiance also reported that she rarely takes Xanax). On day of discharge, pt remains in good mood, with bright affect and future oriented. She denies any SI or HI and is looking forward to returning home with her supporive fiance. ? Patient's 3 day notice is due on 02/25.? She is not in imminent risk for harm to self or others and is appropriate for discharge. Time spent discussing smoking cessation with patient: 3 to 10 minutes (did not want MAT) Status at Discharge Functional status at discharge: independent ambulation Overall status at discharge: patient is back to baseline Time Spent with Patient Time attestation: Total time spent providing and/or coordinating discharge services: Time spent: Less than 30 minutes Discharge Plan Discharge Patient Disposition: Home, Self-Care Discharge Diagnosis: Brief psychotic disorder, resolved Referrals: Callum Tapia (psychiatry) [Other] - 03/03/21 2:00 pm (This is a virtual appointment. A link will be sent to you to connect to the session) Katina Olson (therapy) [Other] - 02/26/21 3:00 pm (This is a Telehealth appointment) [facility] [Other] - 1 Week (Patient to schedule their own appointment after discharge.) Physician,Nonstaff [Primary Care Provider] - 1 Week Discharge Medications: New methadone [Methadose] 10 mg/mL Concentrate 140 mg PO DAILY Qty: 0 RF: 0 aripiprazole [Abilify] 5 mg Tablet 5 mg PO DAILY 30 Days Qty: 30 RF: 0 bupropion HCl 300 mg Tablet Extended Release 24 Hr 300 mg PO DAILY 30 Days Qty: 30 RF: 0 trazodone 50 mg Tablet 50 mg PO BEDTIME PRN (Reason: Insomnia) 30 Days Qty: 30 RF: 0 Continued alprazolam 1 mg tablet 1 tab PO TID PRN (Reason: Anxiety) RF: 0 Changed hydroxyzine HCl 50 mg tablet 50 mg PO BEDTIME PRN (Reason: insomnia) 30 Days Qty: 30 RF: 0 prazosin 2 mg capsule 4 mg PO BEDTIME 30 Days Qty: 60 RF: 0 Discontinued bupropion HCl 200 mg tablet sustained-release 12 hr 1 tab PO BID RF: 0 methadone [Methadone Intensol] 10 mg/mL Concentrate 150 mg PO DAILY RF: 0 Discharge Orders: Discharge Order (Routine); Ordered 02/25/21 Ordered By: Doron Conte Diet: regular diet Activity on Discharge: As tolerated Stand Alone Forms: Patient Portal Discharge page Care Plan Goals: Maintain mood and safe behaviors Take medications as prescribed Continue to pursue sobriety Practice coping skills Continue with outpatient providers and reach out to them as needed Health Concerns: Mood stability and behaviors Sobriety Plan of Treatment: Follow up with your PCP and psychiatric provider regarding above concerns Take medications as prescribed Assessment: Risk assessment at time of discharge:? Patient was interviewed prior to discharge and found to be fully oriented and without any SI or HI. Patient has insight and demonstrates good judgment in terms of wanting to pursue treatment. Patient is not in imminent risk of harm to self or others and has a safety plan that includes presenting to the closest ER or calling 911 if feeling unsafe.? Patient has been observed closely by nursing and unit staff throughout admission; patient has not engaged in any behaviors that suggest dangerousness to self or others and has demonstrated appropriate behaviors and impulse control.
[2021-02-24] MEDS: Acetaminophen 325 MG TABLET 650 MG PO (17:08)
[2021-02-24 19:45] VITALS: BP 128/66; PULSE 82; TEMP 36.4; O2SAT 96
[2021-02-24 19:51] VITALS: BP 128/66; PULSE 82
[2021-02-24] MEDS: Prazosin HCL 1 MG CAPSULE 2 MG PO (19:51)
[2021-02-24] MEDS: hydrOXYzine HCL 50 MG TABLET PO (19:54)
[2021-02-24] MEDS: traZODone HCL 50 MG TABLET PO (22:27)
[2021-02-25] MEDS: traZODone HCL 50 MG TABLET PO (00:23)
[2021-02-25] MEDS: clonazePAM 0.5 MG TABLET 0.25 MG PO ×2 (06:56→11:20)
[2021-02-25] MEDS: ARIPiprazole 5 MG TABLET PO (09:08)
[2021-02-25] MEDS: buPROPion HCl XL 300 MG TAB.ER.24H PO (09:08)
[2021-02-25] MEDS: methADONE HCl 20 MG/2 ML ORAL.CONC 140 MG PO (09:09)
[2021-02-25] MEDS: Acetaminophen 325 MG TABLET 650 MG PO (11:20)
[2021-02-25] MEDS: Naloxone HCl Nasal TAKE HOME 4 MG SPRAY NOSTRILALT (11:24)
== END 2021-02-25 14:19 | disposition home or self-care (01) | DRG 754 ==
PROVIDERS: Admitting Provider Psychiatry & Neurology Psychiatry; Visit Provider Psychiatry & Neurology Psychiatry
DX: F32.9 Major depressive disorder, single episode, unspecified (principal); R45.851 Suicidal ideations; F11.20 Opioid dependence, uncomplicated; F23 Brief psychotic disorder; F41.9 Anxiety disorder, unspecified; F12.10 Cannabis abuse, uncomplicated; F17.210 Nicotine dependence, cigarettes, uncomplicated; Z71.6 Tobacco abuse counseling; Z88.0 Allergy status to penicillin; Z79.899 Other long term (current) drug therapy
CPT/HCPCS: 93005

== ENCOUNTER 2023-08-31 09:37 | Outpatient (AMB) | payer OTHER, SELFPAY ==
--- NOTE | 2023-08-31 10:50 | MHC.PC.OV ---
Vital Signs 08/31/23 11:05 Height 5 ft 2 in Weight 209 lb BMI 38.2 BP 118/74 Blood Pressure Location Lt brachial Position Sitting Respiration 16 Pulse 82 Pulse Source Pulse Oximeter Pulse Oximetry (%) 98 Oxygen Delivery Method Room Air Intake Visit Reasons: New patient-Requesting physical Financial Services Auditor Required: No Accompanied by: Self / Same As Patient Allergies amoxicillin [Augmentin] Allergy (Unknown, Verified 08/31/23 11:25) hives clavulanic acid [Augmentin] Allergy (Unknown, Verified 08/31/23 11:25) hives Medication List - Last Reconciled 08/31/23 by Alcon Wall PA-C alprazolam 1 tab PO TID PRN aripiprazole (Abilify) 7.5 mg PO DAILY bupropion HCl 300 mg PO DAILY 30 days methadone (Methadose) 140 mg (14 mL) PO DAILY prazosin 4 mg (2 x 2 mg) PO BEDTIME 30 days trazodone 50 mg PO BEDTIME PRN 30 days Tobacco use date assessed: 08/31/23 Dental Screening Dental Screen Date: 08/31/23 Did you have a dental visit in the last 12 months?: No Did you have a dental problem in the last 6 months where you did not have access to dental care?: No Was dental information given to patient?: No (Dentures) HPI New patient-Requesting physical HPI Details Patient is a 43-year-old female here today for new patient annual physical. Previous PCP was dr Jimenez , though has not been seen over 4-5 years. Patient has a past medical history significant for opiate dependency, anxiety and PTSD, major depressive disorder. .. Opiate dependency: Followed by methadone clinic. She reports her opiate dependency secondary to an ankle traumatic fracture and postop pain. .. Major depressive disorder: Was followed by a mental health med provider and a mental health therapist. Her med provider has left the practice and is on waiting list to see a new psychiatrist. Needs PCP to bridge her with her mental health medications until she sees a new mental health med provider. . Tobacco dependency: She does understand she needs to quit smoking. She reduced her smoking down to half pack a day. She does have nicotine lozenges and patches available to her through her methadone clinic. She is somewhat interested in smoking cessation counseling Mammo: need mammo FOOD CROPS FARM HAND: Needs A PAP vaccine: SIMONA LANGE and Tdap , declines flu vaccine. Needs PCV PFSH Medical History Opioid dependence Cannabis abuse Substance abuse Depression Anxiety Surgical History History of hernia repair Family History (Updated 08/31/23 @ 11:34 by Alcon Wall PA-C) Maternal Grandmother Colon cancer Paternal Grandmother Leukemia Social History (Updated 08/31/23 @ 11:35 by Alcon Wall PA-C) Household Members: Unknown / Unable to assess Housing: House Do you presently have visiting nurse or other home services: No Alcohol intake: never Patient Tobacco Use Status: Current everyday Tobacco user Tobacco use type: Cigarette Cigarettes Per Day: 10 e-Cigarette/Vaping Use: Never Used Second Hand Smoke Exposure: No Substance Use Type: Marijuana and Opiates service: No Current occupational status: unemployed Sexual orientation: Straight/Heterosexual Cognitive needs: No Hearing needs: No Vision needs: No Questionnaire PHQ-9 Over the last 2 weeks, how often have you been bothered by any of the following problems? 1. Little interest or pleasure in doing things: more than half the days 2. Feeling down, depressed, or hopeless: several days 3. Trouble falling or staying asleep, or sleeping too much: more than half the days 4. Feeling tired or having little energy: more than half the days 5. Poor appetite or overeating: several days 6. Feeling bad about yourself - or that you are a failure or have let yourself or your family down: several days 7. Trouble concentrating on things, such as reading the newspaper or watching television: more than half the days 8. Moving or speaking so slowly that other people could have noticed. Or the opposite - being so fidgety or restless that you have been moving around a lot more than usual: more than half the days 9. Thoughts that you would be better off or of hurting yourself in some way: not at all Total score: 13 [id number] - PHQ-9 Billing: Yes Source: Developed by Drs. Sammy Renee, Teena Munoz, Adams Vergara and colleagues, with an educational christianne from [employer]. Thrive Questionnaire Date Thrive assessed: 08/31/23 I am a: Patient What is your living situation today?: I have a steady place to live Within the past 12 months, did the food you bought not last and you didn't have the money to get more?: Never true Within the past 12 months, did you worry whether your food would run out before you got money to buy more?: Never true Do you have trouble paying for medicines?: No Do you have trouble getting transportation to medical appointments?: No Do you have trouble paying your heating and electricity bill?: No Do you have trouble taking care of your child, family member or friend?: No Do you have trouble with day-to-day activities such as bathing, preparing meals, shopping, managing finances, etc.?: No Are you currently unemployed and looking for a job?: No Are you interested in more education?: No Please select the resources that you would like help with: None Currently or been in a relationship where the following occur: no concerns reported THRIVE Score: 0 AUDIT C Alcohol Use Questionnaire (AUDIT-C) 1. How often do you have a drink containing alcohol?: Never 3. How often do you have six or more drinks on one occasion?: Never Total Score: 0 MIKE-7 AMB Questionnaire MIKE-7 Date MIKE - 7 assessed: 08/31/23 Feeling nervous, anxious, or on edge: 3 = Nearly every day Not being able to stop or control worryin = More than half the days Worrying too much about different things: 2 = More than half the days Trouble relaxin = More than half the days Being so restless that it is hard to sit still: 2 = More than half the days Becoming easily annoyed or irritable: 2 = More than half the days Feeling afraid as if something awful might happen: 2 = More than half the days Total MIKE-7 score (0-4 normal; 5-9 mild; 10-14 moderate; 15-21 severe): 15 Source: Developed by Drs. Sammy Renee, Teena Munoz, Adams Vergara and colleagues, with an educational christianne from [employer]. MIKE-7 Assessment Billing MIKE-7 Assessment Tool: MIKE-7 Assessment 05247 Review of Systems Const Denies body aches, Denies chills, Denies excessive sweating, Denies fatigue, Denies fever(s) and Denies headache(s) Eyes Denies blurry vision ENT Denies dysphagia, Denies vertigo, Denies dizziness, Denies headache(s), Denies hearing loss and Denies tinnitus Card Denies chest pain, Denies chest pain with activity, Denies syncope, Denies irregular heart rhythm and Denies dyspnea Resp Denies chest congestion, Denies cough, Denies hemoptysis, Denies dyspnea and Denies wheezing GI Denies abdominal pain, Denies melena, Denies hematochezia, Denies coffee ground emesis, Denies dysphagia, Denies diarrhea, Denies nausea and Denies vomiting Denies urinary frequency, Denies dysuria, Denies urinary hesitancy and Denies urinary urgency Musc Denies arthralgias, Denies limited range of motion, Denies muscle cramps and Denies muscle weakness Skin/Breast Denies rash and Denies skin ulcer Neuro Denies Abnormal speech present, Denies confusion, Denies vertigo, Denies dizziness, Denies syncope, Denies headache(s), Denies memory loss and Denies seizure-like activity Psych Denies anxiety, Denies confusion, Denies depression, Denies memory loss, Denies panic attacks and Denies paranoia Endo Denies excessive sweating, Denies fatigue, Denies flushing, Denies polydipsia and Denies polyuria Aller/Immun Denies wheezing Physical exam (Primary Care) Vital Signs: Last Vital Signs Pulse 82 08/31/23 11:05 Resp 16 08/31/23 11:05 BP 118/74 08/31/23 11:05 Pulse Ox 98 08/31/23 11:05 Oxygen Delivery Method Room Air 08/31/23 11:05 BMI result Body Mass Index 38.2 BMI Assessment/Plan discussion: High Tobacco/Smoking Status: Tobacco use Status Tobacco use date assessed 08/31/23 08/31/23 11:15 Patient Tobacco Use Status Current everyday Tobacco 08/31/23 11:35 Tobacco use type Cigarette 08/31/23 11:35 e-Cigarette/Vaping Use Never Used 08/31/23 11:35 Are you ready to quit: Yes Tobacco cessation counseling provided: Yes Items discussed: Nicotine replacement and QuitWorks Relapse Prevention: discussed the importance of a supportive environment, discussed negative mood or depression after quitting, weight gain after smoking is common and discussed dietary, exercise and/or lifestyle changes Number of minutes spent counselin CPT code: 45137 - 4-10 Minutes PHQ-9: PHQ-9 Score PHQ-9: Total score 13 08/31/23 11:51 Thrive Assessment: Date of Thrive Assessment Date Thrive assessed 08/31/23 08/31/23 11:15 Currently or been in a relationship where the following occur: no concerns reported Const Other: Obese General: cooperative, comfortable, no acute distress, alert and awake; No confusion Orientation/consciousness: oriented to person, oriented to place, patient oriented x3 and No confusion HENMT Head: Yes normocephalic Ears: external ears normal and TM's normal bilaterally Face and sinus: No sinus tenderness Mouth: Normal oral and palatal mucosa present and tongue normal Teeth and gingiva: dentition normal and gingiva normal Throat: Yes posterior oropharynx normal, Yes tonsils normal and Yes uvula midline Eyes Conjunctivae: conjunctivae normal Sclerae: sclerae normal Pupils: Equal, round and reactive pupils present EOM: EOMs intact bilaterally Direct Ophthalmoscopy: No no photophobia Neck Neck: Yes no lymphadenopathy, No tender and Yes no JVD Thyroid: Thyroid normal Carotids: no bruits Chest Chest palpation & inspection: no tenderness Resp Effort & Inspection: normal respiratory effort, no audible wheezes, not labored and no stridor Auscultation: no crackles, no rales, no rhonchi and no wheezes Cardio Jugular venous distension: no JVD Rate: regular rate, not bradycardic and not tachycardic Rhythm: regular rhythm Bruits: no carotid bruits Peripheral pulses: Peripheral pulses 2+ throughout GI Inspection: Yes normal to inspection, No abdominal wall ecchymosis and No visible herniation Palpation (GI): Soft to palpation, nontender, no guarding, not rigid and No hepatosplenomegaly present Auscultation: normoactive bowel sounds General: Yes no CVA tenderness Back/Spine/Pelvis Back: no CVA tenderness and No back tenderness Cervical Spine: cervical ROM normal Thoracic/Lumbar Spine: thoracic and lumbar spine normal to inspection, straight leg raise negative bilaterally, No thoraco-lumbar ROM limited and No lumbar spinal tenderness Skin Lesions: no lesions Rashes: no rashes Wounds: no wounds Neuro General: oriented to person, oriented to place, patient oriented x3, CN's II-XI intact bilaterally and No confusion Cranial nerves: Yes Equal, round and reactive pupils present and Yes Normal accommodation reflex present Cognition (Neuro): normal cognition Speech: No Abnormal speech present Gait exam (Neuro): Normal gait present Motor exam (neuro): 5/5 motor strength present throughout Extrem Right upper extremity: full ROM; no cyanosis Left upper extremity: full ROM; no cyanosis Right lower extremity: no edema Left lower extremity: no edema Psych Appearance: grossly normal Mental Status: mental status grossly normal Affect: normal affect Attitude: cooperative Thought process: Normal thought process present Immunizations pneumoc 20-deborah conj-dip cr(PF) 0.5 mL IM syringe Performing Provider: Alcon Wall PA-C [facility] Administered by: TAINA Ho on 08/31/23 11:51 Dose Route Admin Location Dispensed Lot Number Expiration Date NDC Software Quality Engineer 0.5 mL IM Left Deltoid 0.5 mL [id number] 08/04/24 8577-6234-79 [employer]/VR1 VIS Given Date VIS Provided VIS Publication Date 08/31/23 Single Vaccine 21 Eligibility Eligibility Date Funding Source Not [facility] Eligible 08/31/23 Private Assessment and Plan Assessment & Plan (1) Annual physical exam: Code(s): Z00.00 - Encounter for general adult medical examination without abnormal findings (2) Anxiety: Code(s): F41.9 - Anxiety disorder, unspecified Plan: Patient has a long history of anxiety. Continues with daily use of alprazolam. We did have discussion about alprazolam being a habit-forming medication. She will be following up with a mental health med provider soon to take over prescribing. (3) Opioid dependence: Code(s): F11.20 - Opioid dependence, uncomplicated Qualifiers: Substance use status: in remission Qualified Code(s): F11.21 - Opioid dependence, in remission Plan: Continues to follow a methadone clinic (4) Obese: Code(s): E66.9 - Obesity, unspecified Qualifiers: Body mass index: BMI 38.0-38.9 Obesity classification: adult class 2 (BMI 35 - 39.9) Obesity type: due to excess calories Serious obesity comorbidity presence: without serious comorbidity Qualified Code(s): E66.09 - Other obesity due to excess calories; Z68.38 - Body mass index [BMI] 38.0-38.9, adult Plan: Patient does understand her BMI is over 30 will work on being more physically active and adapting to better eating habits to reduce her weight. She is interested in speaking with a physicist solid state (5) Screening for diabetes mellitus (DM): Code(s): Z13.1 - Encounter for screening for diabetes mellitus (6) Breast cancer screening: Code(s): Z12.39 - Encounter for other screening for malignant neoplasm of breast Qualifiers: Breast cancer screening modality: mammogram Qualified Code(s): Z12.31 - Encounter for screening mammogram for malignant neoplasm of breast Plan: Needs mammogram (7) Screening for cervical cancer: Code(s): Z12.4 - Encounter for screening for malignant neoplasm of cervix Plan: Needs cervical cancer screening (8) MDD (major depressive disorder), recurrent episode, moderate: Code(s): F33.1 - Major depressive disorder, recurrent, moderate Plan: Patient does have a long history of major depressive disorder. Again was seeing a psychiatrist though is on a waiting list to see a new psychiatrist. Continues on Abilify , trazodone and bupropion with good effect on reducing her low moods. (9) PTSD (post-traumatic stress disorder): Code(s): F43.10 - Post-traumatic stress disorder, unspecified (10) Tobacco dependence: Code(s): F17.200 - Nicotine dependence, unspecified, uncomplicated Plan: Patient does understand she needs to quit smoking. She does have nicotine patches and lozenges available to her. She is interested smoking cessation counseling. Orders: Orders MM screening mammo BI Today Z12.31 - Encounter for screening mammogram for malignant neoplasm of breast Pneumococcal 20 Immunization Today E66.09 - Other obesity due to excess calories, Z23 - Encounter for immunization, Z68.38 - Body mass index [BMI] 38.0-38.9, adult Comprehensive [place]. Panel Fast Today Z13.1 - Encounter for screening for diabetes mellitus Referrals THERMOSTAT MECHANIC Referral Z12.4 - Encounter for screening for malignant neoplasm of cervix Nurse Navigator Referral F17.200 - Nicotine dependence, unspecified, uncomplicated Nutrition/Dietitian Referral E66.09 - Other obesity due to excess calories, Z68.38 - Body mass index [BMI] 38.0-38.9, adult Medications: Changed From alprazolam 1 mg PO TID PRN Anxiety F43.10 - Post-traumatic stress disorder, unspecified To alprazolam 1 mg PO TID 3 days PRN 9 tabs 0RF Anxiety F43.10 - Post-traumatic stress disorder, unspecified From aripiprazole (Abilify) 7.5 mg PO DAILY F33.1 - Major depressive disorder, recurrent, moderate To aripiprazole (Abilify) 7.5 mg (1.5 x 5 mg) PO DAILY 45 tabs 1RF 30 days F33.1 - Major depressive disorder, recurrent, moderate From alprazolam 1 mg PO TID 3 days PRN 9 tabs 0RF Anxiety F43.10 - Post-traumatic stress disorder, unspecified To alprazolam 1 mg PO TID PRN 90 tabs 0RF Anxiety 30 days F43.10 - Post-traumatic stress disorder, unspecified Refilled bupropion HCl 300 mg PO DAILY 30 tabs 1RF 30 days F33.1 - Major depressive disorder, recurrent, moderate prazosin 4 mg (2 x 2 mg) PO BEDTIME 60 caps 1RF 30 days F43.10 - Post-traumatic stress disorder, unspecified trazodone 50 mg PO BEDTIME PRN 30 tabs 1RF Insomnia 30 days F43.10 - Post-traumatic stress disorder, unspecified Coding Level of Care Code New [facility] [id number]([id number]) Diagnoses Annual physical exam Z00.00 Anxiety F41.9 Opioid dependence in remission F11.21 Substance use status: in remission Class 2 obesity due to excess calories without serious comorbidity with body mass index (BMI) of 38.0 to 38.9 in adult E66.09; Z68.38 Body mass index: BMI 38.0-38.9 Obesity classification: adult class 2 (BMI 35 - 39.9) Obesity type: due to excess calories Serious obesity comorbidity presence: without serious comorbidity Screening for diabetes mellitus (DM) Z13.1 Encounter for screening mammogram for malignant neoplasm of breast Z12.31 Breast cancer screening modality: mammogram Screening for cervical cancer Z12.4 MDD (major depressive disorder), recurrent episode, moderate F33.1 PTSD (post-traumatic stress disorder) F43.10 Tobacco dependence F17.200 Additional Codes MIKE-7 Assessment Billing - MIKE-7 Assessment Tool: MIKE-7 Assessment 21689 ([id number]) Vital Signs *Quality* - CPT code: 03479 - 4-10 Minutes ([id number])
[2023-08-31 11:05] VITALS: BP 118/74; PULSE 82; RESP 16; O2SAT 98; BMI 38.2
== END 2023-08-31 11:58 | disposition home or self-care (01) ==
PROVIDERS: PCP Physician Assistant; Visit Provider Physician Assistant
DX: Z00.00 Encounter for general adult medical examination without abnormal findings (principal); F33.1 Major depressive disorder, recurrent, moderate; F11.21 Opioid dependence, in remission; Z23 Encounter for immunization; E66.09 Other obesity due to excess calories; F41.9 Anxiety disorder, unspecified; F17.210 Nicotine dependence, cigarettes, uncomplicated; Z68.38 Body mass index [BMI] 38.0-38.9, adult; Z13.1 Encounter for screening for diabetes mellitus; Z12.31 Encounter for screening mammogram for malignant neoplasm of breast; F43.10 Post-traumatic stress disorder, unspecified
CPT/HCPCS: 90471; 90677; 99386; 99406

== ENCOUNTER 2024-01-26 10:44 | Outpatient (AMB) | payer OTHER, SELFPAY ==
[2024-01-26 11:15] VITALS: BP 112/68; PULSE 84; O2SAT 95; BMI 38.1
--- NOTE | 2024-01-26 11:15 | A.OFFPC_ITS ---
Vital Signs 01/26/24 11:15 Height 5 ft 2 in Weight 208 lb 2 oz BMI 38.1 BP 112/68 Blood Pressure Location Lt brachial Position Sitting Pulse 84 Pulse Source Pulse Oximeter Pulse Oximetry (%) 95 Oxygen Delivery Method Room Air Intake Visit Reasons: Follow-up labs Intake Note: The patient is here for a medical statement and to have the EAEDC form completed and faxed. Today's concerns include a rash around the joints caused by psoriasis, for which they are requesting medication, and ankle pain related to the plate and screws, unbale to walk long distance due to weakness. Security Officers And Guards Required: No Accompanied by: Self / Same As Patient Allergies amoxicillin [Augmentin] Allergy (Unknown, Verified 01/26/24 11:41) hives clavulanic acid [Augmentin] Allergy (Unknown, Verified 01/26/24 11:41) hives Medication List - Last Reconciled 01/26/24 by Alcon Wall PA-C alprazolam 1 mg PO TID PRN 30 days aripiprazole (Abilify) 7.5 mg (1.5 x 5 mg) PO DAILY 30 days bupropion HCl XL 300 mg PO DAILY 30 days methadone (Methadose) 140 mg (14 mL) PO DAILY prazosin 4 mg (2 x 2 mg) PO BEDTIME 30 days trazodone 50 mg PO BEDTIME PRN 30 days Tobacco use date assessed: 08/31/23 Dental Screening Dental Screen Date: 08/31/23 [facility] Medical History Opioid dependence Cannabis abuse Substance abuse Depression Anxiety Surgical History History of hernia repair Family History (Updated 08/31/23 @ 11:34 by Alcon Wall PA-C) Maternal Grandmother Colon cancer Paternal Grandmother Leukemia Social History (Updated 08/31/23 @ 11:35 by Alcon Wall PA-C) Household Members: Unknown / Unable to assess Housing: House Do you presently have visiting nurse or other home services: No Alcohol intake: never Patient Tobacco Use Status: Current everyday Tobacco user Tobacco use type: Cigarette Cigarettes Per Day: 10 e-Cigarette/Vaping Use: Never Used Second Hand Smoke Exposure: No Substance Use Type: Marijuana and Opiates service: No Current occupational status: unemployed Sexual orientation: Straight/Heterosexual Cognitive needs: No Hearing needs: No Vision needs: No Questionnaire Thrive Questionnaire Date Thrive assessed: 08/31/23 MIKE-7 AMB Questionnaire MIKE-7 Date MIKE - 7 assessed: 08/31/23 Source: Developed by Drs. Sammy Renee, Teena Munoz, Adams Vergara and colleagues, with an educational christianne from [employer]. Physical exam (Primary Care) Vital Signs: Last Vital Signs Pulse 84 01/26/24 11:15 BP 112/68 01/26/24 11:15 Pulse Ox 95 01/26/24 11:15 Oxygen Delivery Method Room Air 01/26/24 11:15 BMI result Body Mass Index 38.1 Tobacco/Smoking Status: Tobacco use Status Tobacco use date assessed 08/31/23 01/26/24 11:17 Patient Tobacco Use Status Current everyday Tobacco 01/26/24 11:17 Tobacco use type Cigarette 01/26/24 11:17 e-Cigarette/Vaping Use Never Used 01/26/24 11:17 Thrive Assessment: Date of Thrive Assessment Date Thrive assessed 08/31/23 01/26/24 11:17 Assessment and Plan Assessment & Plan Orders: Orders Complete Blood Count no Diff Today Z13.1 - Encounter for screening for diabetes mellitus XR ankle LT 2V Today M25.572 - Pain in left ankle and joints of left foot Medications: New meloxicam 15 mg PO DAILY 30 days 30 tabs 1RF M25.572 - Pain in left ankle and joints of left foot nicotine (polacrilex) 4 mg buccal Q8H 30 days PRN 108 ea 0RF nicotine cravings F17.200 - Nicotine dependence, unspecified, uncomplicated triamcinolone acetonide 0.1% 1 appl topical BID 30 days 80 grams 0RF L40.9 - Psoriasis, unspecified Coding
--- NOTE | 2024-01-26 11:21 | MHC.PC.OV ---
Vital Signs 01/26/24 11:15 Height 5 ft 2 in Weight 208 lb 2 oz BMI 38.1 BP 112/68 Blood Pressure Location Lt brachial Position Sitting Pulse 84 Pulse Source Pulse Oximeter Pulse Oximetry (%) 95 Oxygen Delivery Method Room Air Intake Visit Reasons: Follow-up labs Intake Note: The patient is here for a medical statement and to have the [facility] form completed and faxed. Today's concerns include a rash around the joints caused by psoriasis, for which they are requesting medication, and ankle pain related to the plate and screws, unable to walk long distance due to weakness. Translator/Interpreter Required: No Accompanied by: Self / Same As Patient Allergies amoxicillin [Augmentin] Allergy (Unknown, Verified 01/26/24 11:41) hives clavulanic acid [Augmentin] Allergy (Unknown, Verified 01/26/24 11:41) hives Medication List - Last Reconciled 01/26/24 by Alcon Wall PA-C alprazolam 1 mg PO TID PRN 30 days aripiprazole (Abilify) 7.5 mg (1.5 x 5 mg) PO DAILY 30 days bupropion HCl XL 300 mg PO DAILY 30 days methadone (Methadose) 140 mg (14 mL) PO DAILY prazosin 4 mg (2 x 2 mg) PO BEDTIME 30 days trazodone 50 mg PO BEDTIME PRN 30 days Tobacco use date assessed: 08/31/23 Dental Screening Dental Screen Date: 08/31/23 HPI Follow-up labs HPI Details Patient is a 43-year-old female here today for a follow-up visit Patient has a past medical history significant for opiate dependency, anxiety and PTSD, major depressive disorder. Concern--> .. Opiate dependency: Followed by methadone clinic. She reports her opiate dependency secondary to an ankle traumatic fracture and postop pain. .. Major depressive disorder: Was followed by a mental health med provider and a mental health therapist. Her med provider has left the practice and is on waiting list to see a new psychiatrist. Needs PCP to bridge her with her mental health medications until she sees a new mental health med provider. . Tobacco dependency: She does understand she needs to quit smoking. She reduced her smoking down to half pack a day. She does have nicotine lozenges and patches available to her through her methadone clinic. She is somewhat interested in smoking cessation counseling [facility] Medical History Opioid dependence Cannabis abuse Substance abuse Depression Anxiety Surgical History History of hernia repair Family History (Updated 08/31/23 @ 11:34 by Alcon Wall PA-C) Maternal Grandmother Colon cancer Paternal Grandmother Leukemia Social History (Updated 08/31/23 @ 11:35 by Alcon Wall PA-C) Household Members: Unknown / Unable to assess Housing: House Do you presently have visiting nurse or other home services: No Alcohol intake: never Patient Tobacco Use Status: Current everyday Tobacco user Tobacco use type: Cigarette Cigarettes Per Day: 10 e-Cigarette/Vaping Use: Never Used Second Hand Smoke Exposure: No Substance Use Type: Marijuana and Opiates service: No Current occupational status: unemployed Sexual orientation: Straight/Heterosexual Cognitive needs: No Hearing needs: No Vision needs: No Questionnaire Thrive Questionnaire Date Thrive assessed: 08/31/23 MIKE-7 AMB Questionnaire MIKE-7 Date MIKE - 7 assessed: 08/31/23 Source: Developed by Drs. Sammy Renee, Teena Munoz, Adams Vergara and colleagues, with an educational christianne from [employer]. Physical exam (Primary Care) Vital Signs: Last Vital Signs Pulse 84 01/26/24 11:15 BP 112/68 01/26/24 11:15 Pulse Ox 95 01/26/24 11:15 Oxygen Delivery Method Room Air 01/26/24 11:15 BMI result Body Mass Index 38.1 Tobacco/Smoking Status: Tobacco use Status Tobacco use date assessed 08/31/23 01/26/24 11:30 Patient Tobacco Use Status Current everyday Tobacco 01/26/24 11:30 Tobacco use type Cigarette 01/26/24 11:30 e-Cigarette/Vaping Use Never Used 01/26/24 11:30 Thrive Assessment: Date of Thrive Assessment Date Thrive assessed 08/31/23 01/26/24 11:30 Assessment and Plan Assessment & Plan (1) Anxiety: Code(s): F41.9 - Anxiety disorder, unspecified Plan: Patient has a long history of anxiety. Continues with daily use of alprazolam. We did have discussion about alprazolam being a habit-forming medication. She will be following up with a mental health med provider soon to take over prescribing. (2) Opioid dependence: Code(s): F11.20 - Opioid dependence, uncomplicated Qualifiers: Substance use status: in remission Qualified Code(s): F11.21 - Opioid dependence, in remission Plan: Continues to follow a methadone clinic (3) Obese: Code(s): E66.9 - Obesity, unspecified Qualifiers: Body mass index: BMI 38.0-38.9 Obesity classification: adult class 2 (BMI 35 - 39.9) Obesity type: due to excess calories Serious obesity comorbidity presence: without serious comorbidity Qualified Code(s): E66.09 - Other obesity due to excess calories; Z68.38 - Body mass index [BMI] 38.0-38.9, adult Plan: Patient does understand her BMI is over 30 will work on being more physically active and adapting to better eating habits to reduce her weight. She is interested in speaking with a latin teacher (4) MDD (major depressive disorder), recurrent episode, moderate: Code(s): F33.1 - Major depressive disorder, recurrent, moderate Plan: Patient does have a long history of major depressive disorder. Again was seeing a psychiatrist though is on a waiting list to see a new psychiatrist. Continues on Abilify , trazodone and bupropion with good effect on reducing her low moods. (5) PTSD (post-traumatic stress disorder): Code(s): F43.10 - Post-traumatic stress disorder, unspecified (6) Tobacco dependence: Code(s): F17.200 - Nicotine dependence, unspecified, uncomplicated Plan: Patient does understand she needs to quit smoking. She does have nicotine patches and lozenges available to her. She is interested smoking cessation counseling. Orders: Orders Complete Blood Count no Diff Today Z13.1 - Encounter for screening for diabetes mellitus Coding Diagnoses Anxiety F41.9 Opioid dependence in remission F11.21 Substance use status: in remission Class 2 obesity due to excess calories without serious comorbidity with body mass index (BMI) of 38.0 to 38.9 in adult E66.09; Z68.38 Body mass index: BMI 38.0-38.9 Obesity classification: adult class 2 (BMI 35 - 39.9) Obesity type: due to excess calories Serious obesity comorbidity presence: without serious comorbidity MDD (major depressive disorder), recurrent episode, moderate F33.1 PTSD (post-traumatic stress disorder) F43.10 Tobacco dependence F17.200
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
[2024-01-26 13:18] VITALS: BMI 38.1
== END 2024-01-26 12:10 | disposition home or self-care (01) ==
PROVIDERS: PCP Physician Assistant; Visit Provider Physician Assistant
DX: F41.9 Anxiety disorder, unspecified (principal); F11.21 Opioid dependence, in remission; F33.1 Major depressive disorder, recurrent, moderate; F43.10 Post-traumatic stress disorder, unspecified; F17.200 Nicotine dependence, unspecified, uncomplicated
CPT/HCPCS: 99214

== ENCOUNTER 2025-04-11 15:19 | Outpatient (AMB) | payer OTHER, SELFPAY ==
[2025-04-11 15:22] VITALS: BP 100/68; PULSE 100; RESP 18; TEMP 36.3; O2SAT 95; BMI 37.4
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
--- OUTSIDE RECORDS SUMMARY | 2025-04-11 18:15 | XMS_ITS | Clinical Summary ---
Author Organization [facility] ity Address [address] [place] [address] Care Team Providers Care Restaurant Service Manager Name Role Phone Unavailable Primary Care Provider Unavailabl e Social History Tobacco Use Types Packs/Day Years Used Date Smoking Tobacco: Never Assessed Comments Unknown Sex and Gender Information Value Date Recorded Sex Assigned at Not on file Legal Sex Female 4:54 PM EST Gender Identity Not on file Sexual Orientation Not on file Plan of Treatment Health Maintenance Due Date Last Done Comments Breast Cancer Screening 1979 Colorectal Cancer Screening: Colonoscopy 1979 Hepatitis B Vaccines (1 of 3 - 19+ 3-dose series) 1998 Cervical Cancer Screening: P ap Smear 2000 HPV Vaccines (1 - 3-dose SCD M series) 2006 HIV Screening 05/05/2022 Hepatitis C Screening 05/05/2022 Social Influencers of Health Screening 05/05/2022 Depression Screening 06/06/2024 COVID-19 Vaccine (2023-2 5 season) 2025 Influenza Vaccine (#1) 2025 03/03/2015 DTaP,Tdap,and Td Vaccines (2 - Td or Tdap) 09/19/2032 09/19/2022 RSV Immunization Adult Patie nts (1 - 1-dose 75+ series) 2054 HIB Vaccines Aged Out No longer eligi ble based on patient's age to complete this topic Hepatitis A Vaccines Aged Out No long er eligible based on patient's age to complete this topic IPV Vaccines Aged Out No longer eligi ble based on patient's age to complete this topic MMR Vaccines Aged Out No longer eligi ble based on patient's age to complete this topic Meningococcal ACWY Vaccine Aged Out N o longer eligible based on patient's age to complete this topic Meningococcal B Vaccine Aged Out No l onger eligible based on patient's age to complete this topic Pneumococcal Vaccine: Pediat rics (0 to 5 Years) and At-Risk Patients (6 to 49 Years) Aged Out No longer eligi ble based on patient's age to complete this topic RSV Immunization Patients Un josephine 20 months Aged Out No longer eligible b ased on patient's age to complete this topic Varicella Vaccines Aged Out No longer eligible based on patient's age to complete this topic
== END 2025-04-11 16:09 | disposition home or self-care (01) ==
PROVIDERS: PCP Physician Assistant; Visit Provider Physician Assistant
DX: Z00.00 Encounter for general adult medical examination without abnormal findings (principal); F33.1 Major depressive disorder, recurrent, moderate; F11.21 Opioid dependence, in remission; F17.210 Nicotine dependence, cigarettes, uncomplicated; Z68.37 Body mass index [BMI] 37.0-37.9, adult; E66.9 Obesity, unspecified; F43.10 Post-traumatic stress disorder, unspecified; Z12.11 Encounter for screening for malignant neoplasm of colon; Z12.31 Encounter for screening mammogram for malignant neoplasm of breast

== ENCOUNTER → 2025-04-11 15:19 | Outpatient (BNVA) | payer OTHER, SELFPAY | PROVIDERS: PCP Physician Assistant; Visit Provider Physician Assistant | DX: Z00.00 Encounter for general adult medical examination without abnormal findings (principal); F43.10 Post-traumatic stress disorder, unspecified; F17.210 Nicotine dependence, cigarettes, uncomplicated; F33.1 Major depressive disorder, recurrent, moderate; F11.21 Opioid dependence, in remission; E66.9 Obesity, unspecified; L40.9 Psoriasis, unspecified; Z87.81 Personal history of (healed) traumatic fracture; Z68.37 Body mass index [BMI] 37.0-37.9, adult | CPT/HCPCS: 96127; 99396 ==